=== PATIENT | male | born 1950 | race Caucasian/White ===

== ENCOUNTER 2025-05-18 07:57 | Day surgery (SDC) | payer OTHER, SELFPAY ==
[2025-05-18] VITALS (18 sets, daily range): BP systolic 138–192; BP diastolic 79–103; BMI 27.8
[2025-05-18] MEDS: LOW STRENGTH ASPIRIN 324 MG PO (09:09)
[2025-05-18] MEDS: NSS 241 ML IV (09:11)
[2025-05-18 12:42] LABS: ACT-LR - POC 287 Seconds (116-155)
[2025-05-18 13:28] LABS: ACT-LR - POC 289 Seconds (116-155)
[2025-05-18] MEDS: NSS 1000 IV (14:13)
[2025-05-18] MEDS: DIOVAN 320 MG PO (14:30)
--- NOTE | 2025-05-18 19:02 | ITS.CL.PN ---
Dining Room Server - Procedure Note
Procedure
Procedure Note:
CARDIAC CATHETERIZATION REPORT
Date of Procedure: 05/18/2025
Referring: Dr. Dex Collazo MD
Indication: Chest pain, known severe coronary artery disease
PROCEDURE(S)
1. left heart catheterization
2. coronary angiography
3. iFR LAD
ACCESS: 6F right radial artery (closure: radial band)
CATHETERS
1. 6F JR4
2. 6F JL4
3. 6F EBU3.75 guide
MODERATE SEDATION: 25 minutes of moderate sedation was utilized. An independent medical clerical assistant was present to assist with and help manage the patient's level of consciousness and physiologic status.
HEMODYNAMIC DATA
LV 132/10 (EDP 19) mmHg
AO 148/70 (mean 104) mmHg
CORONARY ANGIOGRAPHY
Dominance: Right
LM: Large with mild distal tapering.
LAD: Large vessel giving rise to a single moderate caliber diagonal branch and wrapping around the apex. There is a stent in the proximal LAD with diffuse moderate ISR further interrogated by iFR and found to be positive. The D1 has focal ostial
moderate stenosis.
LCx: Large vessel giving rise to a early rising bifurcating OM1/ramus, moderate caliber OM2, small OM3, and moderate caliber LPL branch. There is moderate-severe disease in the proximal portion of the OM1/ramus and diffuse moderate disease in the
proximal to midportion of the OM2.
RCA: Totally occluded proximally. The distal vessel is supplied via [id number] collaterals to the RPDA and multiple RPL branches.
RADIATION: dose 108 mGy; DAP 9.5 Gy*cm2; fluoroscopy time 4.5 min
CONCLUSIONS
1. Severe coronary artery disease as described with no singular site of high-grade stenosis which would account for anginal symptoms.
2. Mildly elevated LV filling pressure and no aortic stenosis
RECOMMENDATIONS
1. Continued medical management of ischemic cardiomyopathy
2. Aggressive secondary prevention of coronary artery disease
Copy to: Dr. Dex Collazo MD (tiedown operator); Dr. Marlys Bullard MD (PCP)
Signed: Ethan Ruano MD, PhD
== END 2025-05-18 18:10 | disposition home or self-care (01) ==
LOC: CATH 07:57
PROVIDERS: ATTENDING PHYSICIAN Student in an Organized Health Care Education/Training Program; FAMILY PHYSICIAN Internal Medicine; OTHER PHYSICIAN Internal Medicine Cardiovascular Disease
DX: I25.119 Atherosclerotic heart disease of native coronary artery with unspecified angina pectoris (principal); I25.5 Ischemic cardiomyopathy; I10 Essential (primary) hypertension; Z86.73 Personal history of transient ischemic attack (TIA), and cerebral infarction without residual deficits; I25.2 Old myocardial infarction; Z79.82 Long term (current) use of aspirin; Z79.01 Long term (current) use of anticoagulants
CPT/HCPCS: 93799; 99152; 99153; 85347; 93458; C1769; C1894; Q9967